=== PATIENT | male | born 1990 | race Caucasian/White ===

== ENCOUNTER 2017-03-17 13:49 | Emergency (ER) | payer OTHER ==
[~2017-03-17] VITALS: Ht 160 cm; Wt 68.0 kg
[2017-03-17] MEDS ORDERED: FLEXERIL PO (15:23)
[2017-03-17] MEDS ORDERED: ULTRAM50 M1 PO (15:23)
[2017-03-17 15:27] VITALS: BP 128/64
== END 2017-03-17 15:35 | disposition home or self-care (01) | DRG 563 ==
LOC: ED 13:49
DX: S43.401A Unspecified sprain of right shoulder joint, initial encounter (principal); M65.811 Other synovitis and tenosynovitis, right shoulder; X50.0XXA Overexertion from strenuous movement or load, initial encounter; Y93.89 Activity, other specified; Y92.89 Other specified places as the place of occurrence of the external cause